=== PATIENT | female | born 1960 | race Caucasian/White ===

== ENCOUNTER 2016-08-19 10:59 | Inpatient (IN) ==
--- NOTE | 2016-08-19 11:46 | ED.PDOC ---
General ED Provider: Dr. JAYLON BAUTISTA JR Chief Complaint: Shoulder Pain/Injury Stated Complaint: patient fell onto walker and c/o pain to right clavicle.patient also has bruising to right side of chest and bruising under chin.all bruising is yellowed and purple.patient states she falls frequently[End ]08/12/16 99.3 81 16 91% 102/68 810 patient states not drinking alcohol as much. family states concerned that she is turning yellow Time Seen by Physician: 11:44 Mode of Arrival: Walk-In Information Source: Patient Exam Limitations: No limitations Primary Care Provider[facility] Nursing and Triage Documentation Reviewed and Agree: No Review of Systems - Review Of Systems Constitutional: Reports: Malaise, Weakness Eyes: Reports: No symptoms, Other (jaundice) Ears, Nose, Mouth, Throat: Reports: No symptoms Respiratory: Reports: No symptoms Cardiac: Reports: No symptoms GI: Reports: No symptoms, Other (jaundice noted by family to be worsening) : Reports: No symptoms Musculoskeletal: Reports: Joint pain (right shoulder) Skin: Reports: Bruising Neurological: Reports: Cognitive dysfunction Endocrine: Reports: No symptoms Hematologic/Lymphatic: Reports: No symptoms All Other Systems: Other Past Medical History - Past Medical History Previously Healthy: No Endocrine: Reports: DM 1 Cardiovascular: Reports: Hypertension, CHF Respiratory: Reports: COPD Hematological: Reports: None Gastrointestinal: Reports: None Genitourinary: Reports: None Neuro/Psych: Reports: Anxiety, Depression Musculoskeletal: Reports: None Cancer: Reports: None Last Menstrual Period: n/a - Surgical History General Surgical History: Reports: Unknown - Family History Family History: Reports: Unknown - Social History Smoking Status: Current every day smoker, Light tobacco smoker Hx Substance Use: No (patient states not drinking alcohol as much) Alcohol Screening: Heavy Physical Exam - Physical Exam Appearance: Well-appearing Pain Distress: Moderate Eyes: FIDELIA, EOMI, Conjunctiva clear (jaundices) ENT: Ears normal, Nose normal, Oropharynx normal Neck: Supple Respiratory: Airway patent, Breath sounds clear, Breath sounds equal, Respirations nonlabored Cardiovascular: RRR, Pulses normal, No rub, No murmur GI/: Soft, Nontender, No masses, Bowel sounds normal, No Organomegaly Musculoskeletal: Limited ROM (right arm tender clavicle) Skin: Warm, Dry (jaundice/yellow) Neurological: Sensation intact, Reflexes intact, Oriented (wrong day of week), Alert to verbal Psychiatric: Depressed Re-Evaluation - Re-Evaluation Time of Re-Evaluation: 16:55 (Disc with Dr Larry LEONARD called [facility] Enrique will call back) Status: Improved Physician Notification - Case Discussed Physician Notified: dr leos-disc with GI, disc with patietn - may of bleeding-willing to Time of Notification: 16:15 (willing to take lactulose, pt and mother state she will go home if no surg for shoulder; mother will get help [patient will take lactulose will follow up with dr Davis) Physician Notified: disc with [facility] colon only willing if gi- no gi// disc with sahil meléndez Time of Notification: 17:00 (dr robins states nothingthey can do for patient whom he knows, disc with kaylah-dixie- ciaran, gi will call us,,disc with dr Leos- will see patient in er) Critical Care Note - Critical Care Note Total Time (mins): 0 Course - Course Hematology/Chemistry: 08/19/16 12:24 08/19/16 12:24 Orders, Labs, Meds: Lab Review 08/19/16 08/19/16 12:20 12:24 WBC 4.88 RBC 3.37 L Hgb 12.6 Hct 36.1 L MCV 107.1 H MCH 37.4 H MCHC 34.9 RDW Coeff of Lul 13.0 Plt Count 58 L Immature Gran % (Auto) 0.6 Neut % (Auto) 66.8 Lymph % (Auto) 12.3 Henry % (Auto) 16.4 H Eos % (Auto) 3.3 Baso % (Auto) 0.6 Immature Gran # (Auto) 0.0 Neut # 3.3 Lymph # 0.6 Henry # 0.8 Eos # 0.2 Baso # 0.0 PT 18.9 H INR 1.83 APTT 30.8 Sodium 128 L Potassium 3.3 L Chloride 94 L Carbon Dioxide 24 Anion Gap 13.3 BUN 21 H Creatinine 0.97 Estimated GFR (MDRD) 60.00 BUN/Creatinine Ratio 21.64 Glucose 173 H Calcium 8.5 Total Bilirubin 14.04 H AST 68 H ALT 30 Alkaline Phosphatase 58 Ammonia 80 H Total Protein 6.2 L Albumin 2.6 L Globulin 3.6 Albumin/Globulin Ratio 0.72 Amylase 69 Lipase 85 H Plasma/Serum Alcohol < 10.0 Orders Category Date Time Status AMMONIA Stat LAB 08/19/16 12:24 Completed AMYLASE Stat LAB 08/19/16 12:24 Completed CBC W/ AUTO DIFF Stat LAB 08/19/16 12:24 Completed COMPREHENSIVE METABOLIC PANEL Stat LAB 08/19/16 12:24 Completed ETOH LEVEL [BLOOD ALCOHOL] Stat LAB 08/19/16 12:24 Completed LIPASE Stat LAB 08/19/16 12:24 Completed PT WITH INR Stat LAB 08/19/16 12:20 Completed PTT [PARTIAL THROMBOPLASTIN TIME] Stat LAB 08/19/16 12:20 Completed URINALYSIS C & S IF INDICATED Stat LAB 08/19/16 12:02 Uncollected Lactulose MEDS 08/19/16 13:17 Discontinued 40 gm PO ONCE STA Methylprednisolone [Medrol Dosepak] MEDS 08/19/16 19:00 Ordered 40 mg PO DAILY CHEST, 2 VIEWS PA & LAT Stat RADS 08/19/16 11:45 Completed CLAVICLE, RIGHT 2 VIEWS Stat RADS 08/19/16 13:[address] CHEST W/O CONTRAST Stat RADS 08/19/16 13:11 Completed Medications Generic Name Dose Route Start Last Admin Trade Name Freq PRN Reason Stop Dose Admin Methylprednisolone 40 mg 08/19/16 19:00 Medrol Dosepak PO 08/24/16 21:59 DAILY REJI Taper Discontinued Medications Generic Name Dose Route Start Last Admin Trade Name Freq PRN Reason Stop Dose Admin Lactulose 40 gm 08/19/16 13:17 08/19/16 13:33 Lactulose PO 08/19/16 13:18 40 gm ONCE STA Administration Vital Signs: Temp Pulse Resp BP Pulse Ox 08/19/16 10:59 99.3 F 81 16 102/68 91 L Departure - Departure Time of Disposition: 20:17 Disposition: ADMITTED INPATIENT Discharge Problem: Shoulder pain Alcoholic cirrhosis of liver Qualifiers: Ascites presence: without ascites Qualifier Code: (K70.30) Alcoholic cirrhosis of liver without ascites Condition: Poor Pt referred to PMD for follow-up: Yes Allergies/Adverse Reactions: Allergies No Known Allergies Allergy (Verified 08/19/16 11:07) Home Medications: Ambulatory Orders Furosemide [Lasix Tab] 20 mg PO QDAC 01/24/13 Lactulose [Kristalose] 20 gm PO TID #90 packet 08/19/16 Tramadol HCl [Ultram] 50 mg PO Q6H PRN #14 tablet 08/19/16 Additional Information: [id number]-dr joaquin calls back- will accept(no beds)(consider [facility] if not comfortable) daily pt and inr methylprednisolone 40mg daily for calculate alcoholic hepatitis score(low sodium is concerning) restrict free water to 1.5 liters obtain liver doppler ultrasound patient status is concerning.
[2016-08-19 12:27] LABS: BASOPHILS % (AUTO) 0.6 % (0.0-3.0); EOSINOPHILS # (AUTO) 0.2 K/ul (0.0-0.7); EOSINOPHILS % (AUTO) 3.3 % (0.0-7.0); HEMATOCRIT 36.1 % (37.0-47.0); HEMOGLOBIN 12.6 g/dl (12.0-16.0); IMMATURE GRANULOCYTE % (AUTO) 0.6 % (0.0-5.0); LYMPHOCYTES # (AUTO) 0.6 K/uL (0.60-3.4); LYMPHOCYTES % (AUTO) 12.3 (10.0-50.0); MEAN CORPUSCULAR HEMOGLOBIN 37.4 pg (27.0-31.0); MEAN CORPUSCULAR HGB CONC 34.9 (31.8-35.4); MEAN CORPUSCULAR VOLUME 107.1 fl (81.0-99.0); MONOCYTES # (AUTO) 0.8 K/uL (0.4-2.0); MONOCYTES % (AUTO) 16.4 (0-10); NEUTROPHILS # (AUTO) 3.3 K/ul (2.0-6.9); NEUTROPHILS % (AUTO) 66.8; PLATELET COUNT 58 10^3/uL (140-440); RED BLOOD COUNT 3.37 10^6/ul (4.20-5.40); WHITE BLOOD COUNT 4.88 K/ul (4.6-10.2)
[2016-08-19 12:47] LABS: ALBUMIN 2.6 g/dL (3.4-5.0); ALBUMIN/GLOBULIN RATIO 0.72; ANION GAP 13.3; BILIRUBIN,TOTAL 14.04 mg/dL (0.00-1.20); BUN/CREATININE RATIO 21.64; CALCIUM 8.5 mg/dL (8.2-10.2); CREATININE 0.97 mg/dL (0.60-1.30); POTASSIUM 3.3 mmol/L (3.5-5.10); TOTAL PROTEIN 6.2 g/dL (6.4-8.2)
--- NOTE | 2016-08-19 12:54 | DI ---
EXAM: Chest two views HISTORY: Clavicle pain, chest contusion COMPARISON: 09/16/2015 TECHNIQUE: Two views of the chest were performed FINDINGS: No focal airspace consolidation. There is lower airway thickening. There is no pleural effusion or pneumothorax. The heart is normal in size. The mediastinal contour is normal. There ar e chronic compression deformities L2 and L3, previously described CT 06/05/2014. Possible cortical i rregularity right clavicle distally, poorly evaluated. IMPRESSION: 1. Lower airway thickening may be infectious or inflammatory. No focal airspace consolidation. 2. Possible cortical irregularity right clavicle, poorly evaluated.. Fracture not excluded. Recom mend correlation with radiographs clavicle. Report faxed at time of dictation.
[2016-08-19] MEDS ORDERED: LACTULOSE PO STA (13:17)
--- NOTE | 2016-08-19 13:42 | DI ---
EXAM: Right clavicle two views HISTORY: Pain, changes on radiograph COMPARISON: Chest radiograph same day and 09/16/2015 TECHNIQUE: Two views right clavicle were performed FINDINGS: There is remodeling of the distal clavicle, chronic and may be due to old healed fracture . No acute fracture is visualized. There is mild chronic widening of the acromioclavicular joint w hich measures 12 mm. There is mild osteoarthritis of the glenohumeral joint with joint space narrow ing osteophyte formation. There is cystic change about the greater tuberosity and high riding humer al head, most suggestive of rotator cuff tear. IMPRESSION: 1. No acute fracture. 2. Remodeling distal clavicle, chronic and may be due to due to old healed fracture. 3. Chronic mild widening acromioclavicular joint, most consistent with chronic mild AC joint separa tion. 4. High-riding humeral head, most suggestive of rotator cuff tear. 5. Mild osteoarthritis glenohumeral joint.
[2016-08-19] MEDS ORDERED: MORPHINE 2 MG/ML SYRINGE IVP STA ×2 (15:20)
--- NOTE | 2016-08-19 15:29 | CT ---
EXAM: CT chest without contrast. HISTORY: Clavicle pain. Chest contusion. Abnormal chest radiograph. COMPARISON: Radiograph earlier the same day. TECHNIQUE: Multiple axial images of the chest were obtained without intravenous contrast. Images w ere reformatted in the sagittal and coronal planes. FINDINGS: Evaluation for lymphadenopathy is limited due to lack of intravenous contrast. Heart siz e is normal. There is no pericardial effusion. Atherosclerotic calcifications are present. There is consolidation within the posterior right lower lobe along with a trace amount of right pleu ral fluid. This is stable from abdominal CT dated 06/06/2014. Thin linear opacities and ground-gla ss opacities noted in the lingula and left lower lobe. Calcified granulomatous changes are present. No pneumothorax identified. Lucency seen through the proximal right clavicle which extends towards but not definitely into the s ternoclavicular joint. This is best seen on coronal images 24-26 without displacement. Limited franklin ges of the upper abdomen demonstrate cirrhotic liver morphology with upper abdominal varices. Sima lithiasis also present. IMPRESSION: 1. Nondisplaced proximal right clavicular fracture. 2. Right lower lobe consolidation and trace right pleural effusion, stable since prior abdominal CT is likely representing postinflammatory scarring. 3. Probable scarring within the lingula.
[2016-08-19] MEDS ORDERED: MEDROL DOSEPAK PO SCH (19:00)
[2016-08-19 19:36] LABS: PARTIAL THROMBOPLASTIN TIME 30.8 SEC (23.9-40.0); PROTHROMBIN TIME 18.9 SEC (9.3-11.0)
[2016-08-19] MEDS ORDERED: TYLENOL PO PRN (20:31)
[2016-08-19] MEDS ORDERED: GLUCOPHAGE ONE (20:48)
[2016-08-19] MEDS ORDERED: INDERAL ONE (20:50)
[2016-08-19] MEDS ORDERED: PROPRANOLOL HCL 10 MG PO SCH ×21 (21:00)
[2016-08-19] MEDS ORDERED: GLUCOPHAGE PO SCH (21:00)
[2016-08-19] MEDS: LANTUS SUBCUT SCH (21:08)
[2016-08-19] MEDS: ALDACTONE PO SCH (21:08)
[2016-08-19] MEDS: LACTULOSE PO SCH (21:08)
[2016-08-19] MEDS: SODIUM CHLORIDE 0.9%-KCL 20 MEQ 1,000 ML IV SCH (21:08)
[2016-08-19 21:15] LABS: BILIRUBIN,URINE 3+ (NEGATIVE); KETONES,URINE Trace (NEGATIVE); LEUKOCYTE ESTERASE ,URINE Negative (NEGATIVE); NITRITE,URINE Negative (NEGATIVE); PH,URINE 6.5 (5-9); PROTEIN,URINE Negative (NEGATIVE); URINE, BLOOD Negative (NEGATIVE)
[2016-08-19 21:17] LABS: ADD URINE MICROSCOPIC NO
[2016-08-19 21:36] VITALS: BMI 27.5
[2016-08-20] MEDS: LACTULOSE PO SCH ×4 (06:01→21:45)
[2016-08-20 06:12] LABS: BASOPHILS % (AUTO) 0.4 % (0.0-3.0); EOSINOPHILS # (AUTO) 0.2 K/ul (0.0-0.7); HEMATOCRIT 36.2 % (37.0-47.0); HEMOGLOBIN 12.5 g/dl (12.0-16.0); IMMATURE GRANULOCYTE % (AUTO) 1.2 % (0.0-5.0); LYMPHOCYTES # (AUTO) 0.8 K/uL (0.60-3.4); LYMPHOCYTES % (AUTO) 15.5 (10.0-50.0); MEAN CORPUSCULAR HEMOGLOBIN 37.2 pg (27.0-31.0); MEAN CORPUSCULAR HGB CONC 34.5 (31.8-35.4); MEAN CORPUSCULAR VOLUME 107.7 fl (81.0-99.0); MONOCYTES # (AUTO) 1.1 K/uL (0.4-2.0); MONOCYTES % (AUTO) 21.5 (0-10); NEUTROPHILS # (AUTO) 2.9 K/ul (2.0-6.9); NEUTROPHILS % (AUTO) 57.4; PLATELET COUNT 50 10^3/uL (140-440); RED BLOOD COUNT 3.36 10^6/ul (4.20-5.40); WHITE BLOOD COUNT 4.97 K/ul (4.6-10.2)
[2016-08-20 06:50] LABS: ALBUMIN 2.3 g/dL (3.4-5.0); ALBUMIN/GLOBULIN RATIO 0.68; ANION GAP 10.2; BILIRUBIN,TOTAL 15.02 mg/dL (0.00-1.20); BUN/CREATININE RATIO 20.68; CALCIUM 8.2 mg/dL (8.2-10.2); CREATININE 0.87 mg/dL (0.60-1.30); POTASSIUM 3.2 mmol/L (3.5-5.10); TOTAL PROTEIN 5.7 g/dL (6.4-8.2)
[2016-08-20] MEDS: SODIUM CHLORIDE 0.9%-KCL 20 MEQ 1,000 ML IV SCH ×2 (09:28→22:42)
[2016-08-20] MEDS ORDERED: MEPHYTON PO STA (09:52)
--- NOTE | 2016-08-20 11:06 | US ---
EXAM: Ultrasound abdomen complete. HISTORY: Hepatic failure COMPARISON: 06/10/2016 TECHNIQUE: Abdominal, real time with image documentation: Complete. FINDINGS: Liver: Nodular surface contour with coarsened echotexture pattern. No intrahepatic biliary di latation. Portal venous flow is normal direction. Gallbladder: Mobile echogenic shadowing structures. The wall thickening or pericholecystic fl uid. Common bile duct: 0.5 cm. Pancreas: Visualized portions are unremarkable. Spleen: Normal, length 12.2 cm. Right kidney: 11.6 cm length. No hydronephrosis. Left kidney: 10.8 cm in length. No hydronephrosis. Aorta: Visualized portions are normal in caliber. IVC: Visualized portions are normal in caliber. IMPRESSION: 1. Cirrhosis. 2. Cholelithiasis.
[2016-08-20] MEDS: ZOLOFT PO SCH (11:27)
[2016-08-20] MEDS: LANTUS SUBCUT SCH ×2 (11:27→21:46)
[2016-08-20] MEDS: NEURONTIN PO SCH (11:28)
[2016-08-20] MEDS: ALDACTONE PO SCH ×2 (11:28→21:44)
[2016-08-20] MEDS: THIAMINE IM SCH (11:28)
[2016-08-20] MEDS: VITAMIN B-12 IM SCH (11:28)
[2016-08-20] MEDS: INDERAL PO SCH ×2 (11:29→21:44)
[2016-08-20] MEDS: GLUCOPHAGE PO SCH ×2 (11:29→17:13)
[2016-08-21 05:52] LABS: BASOPHILS % (AUTO) 0.5 % (0.0-3.0); EOSINOPHILS # (AUTO) 0.3 K/ul (0.0-0.7); HEMATOCRIT 37.3 % (37.0-47.0); IMMATURE GRANULOCYTE % (AUTO) 1.1 % (0.0-5.0); LYMPHOCYTES # (AUTO) 1.1 K/uL (0.60-3.4); LYMPHOCYTES % (AUTO) 17.1 (10.0-50.0); MEAN CORPUSCULAR HEMOGLOBIN 38.1 pg (27.0-31.0); MEAN CORPUSCULAR HGB CONC 34.9 (31.8-35.4); MEAN CORPUSCULAR VOLUME 109.4 fl (81.0-99.0); MONOCYTES # (AUTO) 1.2 K/uL (0.4-2.0); MONOCYTES % (AUTO) 19.5 (0-10); NEUTROPHILS # (AUTO) 3.5 K/ul (2.0-6.9); NEUTROPHILS % (AUTO) 56.8; PLATELET COUNT 62 10^3/uL (140-440); RED BLOOD COUNT 3.41 10^6/ul (4.20-5.40); WHITE BLOOD COUNT 6.15 K/ul (4.6-10.2)
[2016-08-21 05:56] LABS: PROTHROMBIN TIME 21.6 SEC (9.3-11.0)
[2016-08-21 06:11] LABS: ALBUMIN 2.3 g/dL (3.4-5.0); ALBUMIN/GLOBULIN RATIO 0.7; ANION GAP 11.8; BUN/CREATININE RATIO 17.07; CALCIUM 8.5 mg/dL (8.2-10.2); CREATININE 0.82 mg/dL (0.60-1.30); POTASSIUM 3.8 mmol/L (3.5-5.10); TOTAL PROTEIN 5.6 g/dL (6.4-8.2)
[2016-08-21 06:16] LABS: BILIRUBIN,TOTAL 18.57 mg/dL (0.00-1.20)
[2016-08-21] MEDS ORDERED: NADOLOL 20 MG PO SCH (09:00)
[2016-08-21] MEDS: MEPHYTON PO SCH (09:55)
[2016-08-21] MEDS: NEURONTIN PO SCH (09:55)
[2016-08-21] MEDS: GLUCOPHAGE PO SCH ×2 (09:55→18:56)
[2016-08-21] MEDS: ZOLOFT PO SCH (09:55)
[2016-08-21] MEDS: ALDACTONE PO SCH ×2 (09:55→21:29)
[2016-08-21] MEDS: CORGARD PO SCH (09:56)
[2016-08-21] MEDS: LACTULOSE PO SCH ×2 (10:11→21:30)
[2016-08-21] MEDS: THIAMINE IM SCH (10:12)
[2016-08-21] MEDS: VITAMIN B-12 IM SCH (10:15)
[2016-08-21] MEDS: LANTUS SUBCUT SCH ×2 (10:15→21:29)
[2016-08-21] MEDS ORDERED: PEDIAPRED 5 MG/5 ML SOL PO STA (11:03)
[2016-08-21] MEDS ORDERED: SODIUM CHLORIDE IV STA (11:11)
[2016-08-21] MEDS ORDERED: VITAMIN K IV STA (11:11)
[2016-08-21] MEDS ORDERED: VITAMIN B-12 IM SCH (12:00)
[2016-08-21] MEDS: SODIUM CHLORIDE 0.9%-KCL 20 MEQ 1,000 ML IV SCH (12:02)
[2016-08-21] MEDS: ZINC-220 PO SCH ×2 (12:03→21:30)
[2016-08-21] MEDS: PYRIDOXINE HCL PO SCH (12:03)
[2016-08-21] MEDS: FOLIC ACID PO SCH (12:04)
[2016-08-22] MEDS: SODIUM CHLORIDE 0.9%-KCL 20 MEQ 1,000 ML IV SCH ×2 (02:05→15:48)
[2016-08-22 06:41] LABS: BASOPHILS % (AUTO) 0.3 % (0.0-3.0); HEMOGLOBIN 12.7 g/dl (12.0-16.0); IMMATURE GRANULOCYTE % (AUTO) 0.6 % (0.0-5.0); LYMPHOCYTES # (AUTO) 0.9 K/uL (0.60-3.4); LYMPHOCYTES % (AUTO) 14.4 (10.0-50.0); MEAN CORPUSCULAR HEMOGLOBIN 36.5 pg (27.0-31.0); MEAN CORPUSCULAR HGB CONC 33.4 (31.8-35.4); MEAN CORPUSCULAR VOLUME 109.2 fl (81.0-99.0); MONOCYTES # (AUTO) 0.6 K/uL (0.4-2.0); MONOCYTES % (AUTO) 8.9 (0-10); NEUTROPHILS # (AUTO) 4.9 K/ul (2.0-6.9); NEUTROPHILS % (AUTO) 75.8; PLATELET COUNT 89 10^3/uL (140-440); RED BLOOD COUNT 3.48 10^6/ul (4.20-5.40); WHITE BLOOD COUNT 6.52 K/ul (4.6-10.2)
[2016-08-22 06:47] LABS: PROTHROMBIN TIME 21.5 SEC (9.3-11.0)
[2016-08-22 07:14] LABS: ALBUMIN 2.1 g/dL (3.4-5.0); ALBUMIN/GLOBULIN RATIO 0.64; ANION GAP 9.3; BUN/CREATININE RATIO 16.25; CALCIUM 8.3 mg/dL (8.2-10.2); CREATININE 0.8 mg/dL (0.60-1.30); POTASSIUM 4.3 mmol/L (3.5-5.10); TOTAL PROTEIN 5.4 g/dL (6.4-8.2)
[2016-08-22 07:25] LABS: BILIRUBIN,TOTAL 19.99 mg/dL (0.00-1.20)
[2016-08-22] MEDS: MEPHYTON PO SCH (08:45)
[2016-08-22] MEDS: FOLIC ACID PO SCH (08:45)
[2016-08-22] MEDS: PYRIDOXINE HCL PO SCH (08:45)
[2016-08-22] MEDS: GLUCOPHAGE PO SCH ×2 (08:46→18:46)
[2016-08-22] MEDS: CORGARD PO SCH (08:46)
[2016-08-22] MEDS: NEURONTIN PO SCH (08:46)
[2016-08-22] MEDS: ZOLOFT PO SCH (08:46)
[2016-08-22] MEDS: ALDACTONE PO SCH ×2 (08:46→21:13)
[2016-08-22] MEDS: ZINC-220 PO SCH ×2 (08:46→21:13)
[2016-08-22] MEDS: THIAMINE IM SCH (08:47)
[2016-08-22] MEDS: VITAMIN B-12 IM SCH (08:47)
[2016-08-22] MEDS: LANTUS SUBCUT SCH ×2 (08:49→21:22)
[2016-08-22] MEDS: LACTULOSE PO SCH ×2 (08:53→21:17)
[2016-08-22] MEDS ORDERED: FOLBIC TABLET PO SCH (09:00)
[2016-08-23] MEDS: SODIUM CHLORIDE 0.9%-KCL 20 MEQ 1,000 ML IV SCH ×2 (04:39→18:17)
[2016-08-23 04:50] LABS: HEMATOCRIT 39.5 % (37.0-47.0); HEMOGLOBIN 13.1 g/dl (12.0-16.0); MEAN CORPUSCULAR HEMOGLOBIN 36.7 pg (27.0-31.0); MEAN CORPUSCULAR HGB CONC 33.2 (31.8-35.4); MEAN CORPUSCULAR VOLUME 110.6 fl (81.0-99.0); PLATELET COUNT 143 10^3/uL (140-440); RED BLOOD COUNT 3.57 10^6/ul (4.20-5.40)
[2016-08-23 05:07] LABS: ANISOCYTOSIS NOT PRESENT (NOT PRESENT)
[2016-08-23 05:15] LABS: ALBUMIN 2.1 g/dL (3.4-5.0); ALBUMIN/GLOBULIN RATIO 0.6; ANION GAP 10.5; BUN/CREATININE RATIO 12.94; CALCIUM 8.9 mg/dL (8.2-10.2); CREATININE 0.85 mg/dL (0.60-1.30); POTASSIUM 4.5 mmol/L (3.5-5.10); TOTAL PROTEIN 5.6 g/dL (6.4-8.2)
[2016-08-23 05:22] LABS: BILIRUBIN,TOTAL 20.67 mg/dL (0.00-1.20)
--- NOTE | 2016-08-23 07:16 | HP ---
CHIEF COMPLAINT: 1. Pain, right medial clavicle secondary to fall. 2. History of liver cirrhosis. 3. Change in cognition, slow to react with poor recollection of events. HISTORY OF PRESENT ILLNESS: Because of the above problems; however, in discussion with this patient this patient also has significant liver problems and serum ammonia was high at 80 and total bilirubin was 14.04, AST 68, ALT normal at 30. GFR was 60. WBC 488, hemoglobin 12.6. Initial idea of admitting because of the inability to get up; however, I did discuss the case with the emergency room physician about the liver problems, liver cirrhosis, probably end-stage and some acute exacerbation because of chronic alcohol use, which is persistent although she had not had any alcohol in the last 2 to 3 days confirmed by the patient as well as the mother. Emergency room physician was unable to transfer to another facility and so this patient was admitted to this facility. PAST PERSONAL HISTORY: This patient had been admitted previously to this hospital because of some cognitive problem as well as pneumonia in August 2015. The patient is known to have cirrhosis secondary to alcohol and the patient continued drinking. She had a fracture of the right leg and ankle treated with open reduction and internal fixation. FAMILY HISTORY: Mother had hypertension and myocardial infarction. Father had lung carcinoma. SOCIAL HISTORY: The patient is single and resides with the family. She is disabled. She is an every day smoker, less than one pack. The patient claims to drink less amount of alcohol now. Again, she and her mother claimed that she had not had alcohol for 2 to 3 days. MEDICATIONS: (HOME) 1. Lasix 20 mg daily 2. Sertraline 50 mg daily 3. Lactulose 20 gm daily 4. Propranolol 10 mg twice a day 5. Gabapentin 300 mg capsule daily 6. Metformin 500 mg twice a day 7. Lantus 28 units SQ twice a day 8. Aldactone 25 mg tablet b.i.d. ALLERGIES: NKDA REVIEW OF SYSTEMS: CONSTITUTIONAL: The patient is alert, slow to respond but does answer correctly. She is weak. No fever, no chills. PAINTING MACHINE OPERATOR: The patient's response time seemed to be slower. She does not remember things very well. She had not had any seizures. No headaches. VISUAL: No diplopia. No transient loss of vision. AUDITORY: The patient is able to hear adequately. No tinnitus. No drainage. No pain. RESPIRATORY: Denies any significant cough. No hemoptysis. CARDIOVASCULAR: Denies any chest pain. GASTROINTESTINAL: Appetite seems to be acceptable. Denies any abdominal pain. GENITOURINARY: Denies any pain on urination. MUSCULOSKELETAL: The patient has fracture of the right medial clavicle and also a previous fracture of the right leg and ankle treated with ORIF. ENDOCRINE: Negative. HEMATOLOGIC: The patient has thrombocytopenia and some area of ecchymosis but no spontaneous history of bleeding. PSYCHIATRIC: The patient has alcoholic dependency. PHYSICAL EXAMINATION: GENERAL: This is a 56-year-old female that is admitted to the hospital because of elevated total bilirubin and serum ammonia with recent fracture of the right clavicle. 2:34 responds slow. HEAD: Unremarkable. Face is essentially symmetric and equal. Icteric skin. EYES: Pupils equal and reactive to light about 3 mm in size. Sclerae and conjunctivae is icteric. MOUTH: Unremarkable THROAT: No inflammation, tumors or exudate. NECK: No masses. No bruit. There is an area of ecchymosis on the chin. CHEST: Symmetrical and equal with some ecchymosis in the lateral chest, right side. Tenderness in the clavicular surface to palpation. No crepitus in the chest. LUNGS: Breath sounds are heard on both sides, somewhat diminished and coarse but no obvious rales. HEART: Audible and regular with good tones. ABDOMEN: Slightly protuberant, soft with no palpable masses. Bowel sounds are active. EXTERNAL GENITALIA: Not examined. PELVIC: Not performed. RECTAL: Not performed. LOWER EXTREMITIES: Lower leg right is bigger than the left side secondary to previous fracture. Pedal pulses on the right are absent. The left has palpable anterior tibial pulse. UPPER EXTREMITIES: Essentially symmetrical and equal. ASSESSMENT: 1. LIVER CIRRHOSIS SECONDARY TO ETHANOL PROBABLY WITH SOME HEPATITIS. 2. MARKEDLY ELEVATED TOTAL BILIRUBIN. 3. SOME COGNITIVE IMPAIRMENT. 4. HISTORY OF FRACTURE RIGHT LEG AND ANKLE. 5. CHRONIC TOBACCO USE AND ABUSE PERSISTENT. 6. DIABETES MELLITUS. 7. ELEVATED BMI. 8. HISTORY OF HIP FRACTURE, CORRECTED. PROGNOSIS: Poor. I had a discussion with the mother and the patient while she was in the emergency room. I did inform them also of our inability to transfer her to another facility. BRANT
--- NOTE | 2016-08-23 08:41 | PN ---
DATE OF VISIT: 08/20/16 SUBJECTIVE: The patient vital signs during the day at 6:00 in the afternoon showed a temperature of 98, pulse 78, blood pressure 104/68 and respiratory rate 18. She was responsive and alert. She was able to get up to the bathroom. It remained jaundice. WBC had remained the same as well and the hgb and hct. INR is now 1.94 and was 1.83 yesterday. Sodium is slightly better and the potassium is able the same and the chloride is better now normal. GFR is 68 from 60, blood sugars 163 and serum calcium 8.2, total bilirubin 15.02 from 14.04. AST down to 56 from 68, ALT remained normal. Serum Ammonia is down 32 from 80. Total protein and albumin below normal. Lipase 85 and amylase normal. LUNG: Still no rales HEART: Audible with good tones ABDOMEN: No remarkable tenderness CONDITION: Seems to be stable. MTDD
[2016-08-23] MEDS: FOLIC ACID PO SCH (08:52)
[2016-08-23] MEDS: ZINC-220 PO SCH ×2 (08:52→21:03)
[2016-08-23] MEDS: ALDACTONE PO SCH ×2 (08:53→21:03)
[2016-08-23] MEDS: ZOLOFT PO SCH (08:53)
[2016-08-23] MEDS: PYRIDOXINE HCL PO SCH (08:53)
[2016-08-23] MEDS: NEURONTIN PO SCH (08:54)
[2016-08-23] MEDS: LACTULOSE PO SCH ×2 (08:54→21:03)
[2016-08-23] MEDS: THIAMINE IM SCH (09:04)
--- NOTE | 2016-08-23 09:05 | PN ---
DATE OF VISIT: 08/21/16 SUBJECTIVE: The patient today is alert and responsive but does complain of not feeling well. She felt better yesterday. She did eat 75% of her meals yesterday and 100 % before that. I do not have the record for today. She is not dyspneic or tachypneic. ABDOMEN: Nontender. His total bilirubin has risen to 18.57. I have sought transfer for this patient to [place] and I talked to Dr. Stephen Khan and told me that she would accept the patient. She however told me that it might be better to send her to [facility] in [place]. However she said that she would take the patient but I have to call [facility] and see if they have a bed. I proceeded to call [facility] and she told me that there is no bed in the ICU or any intensive care beds as a result this is patient is not accepted over because of the no bed availability. I did talk to [facility] transfer doctor hospitalist, Dr. Ricahrd and said he had talked to the GI doctors and judged that he could not do anything for her other than what we are doing now. This patient will be transferred to [place] if and when they will accept the patient into their services. I had talked to the mother about the possibility of such. I told her that there was no bed and [place] and she told me that when do they expect to be open and I told her that I don't know. She wanted her transferred to a newer facility and I told her that I would try however I am not able to get these facilities to accept and if unable to get one then we will have to transfer her to [place] and they don't want it done. When I talked to Dr. Stephen Khan and advised this patient and advised the following medications to be given: Prednisolone 40mg daily, Zinc Sulfate 220mg twice a day, Folic acid. This patient is already receiving Thiamine injection and she is also receiving B12. We will try to touch base with [place] and see what happens. BRANT
[2016-08-23] MEDS: LANTUS SUBCUT SCH ×2 (09:08→21:04)
[2016-08-23] MEDS: VITAMIN B-12 IM SCH (09:08)
[2016-08-23] MEDS: CORGARD PO SCH (09:10)
[2016-08-23] MEDS: MEPHYTON PO SCH (09:14)
--- NOTE | 2016-08-23 09:41 | PN ---
DATE OF VISIT: 08/21/16 SUBJECTIVE: I had asked the patient whether she was willing to go to [place] if I would get an acceptance for her and she shook her head in the present of Ledy Gallegos. I then asked Mrs. Gallegos to call the mother to come so I could discuss this with them. Mother did come with the patient's boyfriend. I had discussed with them again what I have done up to this time. This was carried in the presence of Ledy Gallegos. I told them that I had called [facility] and talked to Dr. Stephen Khan with regards to her and Dr. Khan was willing to treat her at the [facility] if there was a bed. She also mentioned that it might be best for her to go to [place] directly although she was willing to take care of her in the mean time. She directed me to call the auto mechanic supervisor at the [facility] for the availability of the bed. After waiting for the call back the [facility] auto mechanic supervisor did call me and told me that there is no bed at the intensive care unit. He also had mentioned [facility] but that also occupied since there was no mention of any bed available. As a result she could not be transferred to [facility]. I proceeded to call [facility] and talked to Dr. Richard and he told me that he has discussed the case with the consulting GI who is front tender with him and was informed by the GI doctor that there is nothing that can offer to her at the [facility]. I did not call [facility] since [facility] had already rejected initially on the the reason was there was no GI doctor front tender. After answering questions from the mother they decided to wait till tomorrow to make a decision whether they would go to [place] or not. I told them that I don't know how long she will be staying there and I am not certain on what they would do and what will be their recommendations. Again they had decided to wait until tomorrow. The mother mentioned about [facility] and so I proceeded to call [facility] and the answer was their facility was not the facility for her and with these findings they send their patient to [place]. This also was communicated to the patient, the mother and boyfriend. They haven't made any decisions and I am waiting for them to decided whether she would go to [place]. The mother did ask me whether the patient can go home and I said yes if she decides to go home but that would not be in my advise, She did ask me how long she would live if she would go home and I told her I do not know although if she goes how and begins drinking the life span will certainly be shorter to my judgement. She had noted that her daughter's skin is much more yellow today than yesterday. I did agree with her. So at this juncture I am still waiting for their decision on how to pursue further treatment. She wanted to know whether [facility] would have a bed tomorrow and I told her that I do not know because people in intensive care unit do not leave the hospital very quickly or soon. MTDConstance
[2016-08-23] MEDS ORDERED: VITAMIN K IV SCH (19:30)
[2016-08-23] MEDS ORDERED: SODIUM CHLORIDE IV SCH (19:30)
[2016-08-23] MEDS ORDERED: VITAMIN K ONE (20:58)
[2016-08-24 04:49] LABS: BASOPHILS # (AUTO) 0.1 K/uL (0-0.2); BASOPHILS % (AUTO) 0.6 % (0.0-3.0); EOSINOPHILS # (AUTO) 0.3 K/ul (0.0-0.7); EOSINOPHILS % (AUTO) 2.4 % (0.0-7.0); HEMATOCRIT 37.7 % (37.0-47.0); IMMATURE GRANULOCYTE % (AUTO) 1.5 % (0.0-5.0); LYMPHOCYTES # (AUTO) 1.3 K/uL (0.60-3.4); LYMPHOCYTES % (AUTO) 11.5 (10.0-50.0); MEAN CORPUSCULAR HEMOGLOBIN 37.4 pg (27.0-31.0); MEAN CORPUSCULAR HGB CONC 34.5 (31.8-35.4); MEAN CORPUSCULAR VOLUME 108.3 fl (81.0-99.0); MONOCYTES # (AUTO) 0.6 K/uL (0.4-2.0); MONOCYTES % (AUTO) 5.4 (0-10); NEUTROPHILS # (AUTO) 9.2 K/ul (2.0-6.9); NEUTROPHILS % (AUTO) 78.6; PLATELET COUNT 139 10^3/uL (140-440); RED BLOOD COUNT 3.48 10^6/ul (4.20-5.40); WHITE BLOOD COUNT 11.68 K/ul (4.6-10.2)
[2016-08-24 05:01] LABS: PROTHROMBIN TIME 22.3 SEC (9.3-11.0)
[2016-08-24 05:12] LABS: ALBUMIN/GLOBULIN RATIO 0.61; ANION GAP 12.2; BUN/CREATININE RATIO 13.15; CALCIUM 8.4 mg/dL (8.2-10.2); CREATININE 0.76 mg/dL (0.60-1.30); POTASSIUM 4.2 mmol/L (3.5-5.10); TOTAL PROTEIN 5.3 g/dL (6.4-8.2)
[2016-08-24 05:15] LABS: BILIRUBIN,TOTAL 21.57 mg/dL (0.00-1.20)
[2016-08-24] MEDS: SODIUM CHLORIDE 0.9%-KCL 20 MEQ 1,000 ML IV SCH ×3 (07:56→21:58)
[2016-08-24] MEDS: ALDACTONE PO SCH ×2 (08:43→21:13)
[2016-08-24] MEDS: CORGARD PO SCH (08:43)
[2016-08-24] MEDS: LACTULOSE PO SCH ×2 (08:43→21:13)
[2016-08-24] MEDS: FOLIC ACID PO SCH (08:44)
[2016-08-24] MEDS: VITAMIN K IV SCH (08:44)
[2016-08-24] MEDS: ZINC-220 PO SCH ×2 (08:44→21:14)
[2016-08-24] MEDS: PYRIDOXINE HCL PO SCH (08:44)
[2016-08-24] MEDS: SODIUM CHLORIDE IV SCH (08:44)
[2016-08-24] MEDS: ZOLOFT PO SCH (08:44)
[2016-08-24] MEDS: NEURONTIN PO SCH (08:44)
[2016-08-24] MEDS: THIAMINE IM SCH (08:45)
[2016-08-24] MEDS: VITAMIN B-12 IM SCH (08:46)
[2016-08-24] MEDS: LANTUS SUBCUT SCH ×2 (08:56→21:14)
--- NOTE | 2016-08-24 11:39 | PN ---
DATE OF VISIT: 08/22/16 The patient, about 6 p.m., is alert and oriented. She, however, has poor recollection of events. VITAL SIGNS: Her temperature is 97.4, pulse rate 65, blood pressure 110/68, respiratory rate 20, oxygen saturation 98 at room air. The patient is jaundice, a bit more for some reason. She claimed to feel some better. I had asked her, as well as her mother, whether they had decided to go to [place]. The were advised to let us know if they had decided during the day and none of those came forth to the nurses. I asked them again in the evening and the patient, the mother, as well as a relative was present and during the course of the conversation, the male relative told me that Ms. Pino had been to [place] several times to Dr. Fontana's office who comes to [place] twice a week, both [place] and [place]. Today is a holiday, so it is very difficult for me to access their doctors phone number. I told them that I will try to get in touch with the doctor if possible tomorrow, 2016. The uncle was asking about the condition of the liver and I told them that the liver had cirrhosis and beyond that the ultrasound does not indicate anything else. The liver, however, has failed and is in liver failure. She needed to have a orthopedic shoe fitter and there is none around [place], except maybe Dr. Fontana who comes from [place] and [place] or [place] or nearby cities. She either needs to go to [facility] or to [place] at maybe [facility]. The mother is hoping that there will be a place nearer and I repeated that there is no one here to take care of her or make a diagnosis and prognosis and recommendations for treatment. LUNGS: Still clear to auscultation in both sides. HEART: Normal sinus rhythm. ABDOMEN: Protuberant, but no ascites. Bowel sounds are active. LOWER EXTREMITIES: No significant edema. CONDITION: Seems to be stable, but this patient needs to see or be transferred to a Tertiary hospital. The patient, as well as the family, has not decided and keep repeating to them that I am not capable of taking care of her and she needed to be transferred. The mother had asked me how long she would survive if she goes home and I told her that I do not know. I mentioned that if she would resume drinking that would certainly shorten the life span of the patient. I again repeated to them that I could not initiate a transfer if they have not decided to be transferred to that facility. Her INR today is 2.09, stable. Her total bilirubin is up to 19.99 from 18.57. AST is about the same, 64 yesterday and today. ALT had remained normal. The alkaline phosphatase is still normal. Total protein is low and Albumin is low at 2.1. Globulin at 3.3. MTDD
--- NOTE | 2016-08-24 12:00 | PN ---
DATE OF VISIT: 08/23/16 The patient was seen about 1 p.m. this afternoon and the patient was alert and responsive. Not dyspneic, nor tachypneic, but jaundiced. I asked her whether she had decided to be transferred and she hasn't at this time. The mother is not present. I did try to get in touch with Dr. Fontana and I called the number that was given and it is an office number of the GI doctors in [place]. The office is closed. I tried also to get records from Dr. Ramey's office who was her previous family physician and their office is also closed. Her total bilirubin today is 20.67, slightly higher than yesterday and the AST is up to 95 from 64. The alkaline phosphatase is now 114 from 94 indicating some more obstruction. WBC 9,000, hemoglobin 13.3, hematocrit 39.5, about the same as yesterday. The MCV is high and had been high since admission at 110.6 and MCH 36.7. Platelet count is now normal at 143,000. She was admitted at 58, 000 and went down to 50,000 on the second hospital day. Neutrophils are slightly elevated at 83, but there are no stabs. LUNGS: Clear. HEART: Audible and regular with good tones. CONDITION: Seemingly unchanged. Her mother and her uncle is not here at the hospital and I will try to talk to them again when I come back to the hospital. VITAL SIGNS: At 10 o'clock, temperature of 98, pulse 76, blood pressure 124/80 , respiratory rate 20, no oximetry done. MTDD
[2016-08-25 05:27] LABS: HEMATOCRIT 36.8 % (37.0-47.0); HEMOGLOBIN 12.6 g/dl (12.0-16.0); MEAN CORPUSCULAR HEMOGLOBIN 37.5 pg (27.0-31.0); MEAN CORPUSCULAR HGB CONC 34.2 (31.8-35.4); MEAN CORPUSCULAR VOLUME 109.5 fl (81.0-99.0); PLATELET COUNT 136 10^3/uL (140-440); RED BLOOD COUNT 3.36 10^6/ul (4.20-5.40); WHITE BLOOD COUNT 11.96 K/ul (4.6-10.2)
[2016-08-25 05:50] LABS: ALBUMIN 1.9 g/dL (3.4-5.0); ALBUMIN/GLOBULIN RATIO 0.59; ANION GAP 10.5; BUN/CREATININE RATIO 10.84; CALCIUM 8.2 mg/dL (8.2-10.2); CREATININE 0.83 mg/dL (0.60-1.30); POTASSIUM 4.5 mmol/L (3.5-5.10); TOTAL PROTEIN 5.1 g/dL (6.4-8.2)
[2016-08-25 05:59] LABS: PROTHROMBIN TIME 22.1 SEC (9.3-11.0)
[2016-08-25 06:01] LABS: ANISOCYTOSIS NOT PRESENT (NOT PRESENT)
[2016-08-25 06:31] LABS: BILIRUBIN,TOTAL 22.49 mg/dL (0.00-1.20)
--- NOTE | 2016-08-25 09:49 | PN ---
DATE OF SERVICE: 08/24/16 This is conversations with Elvira Pino and her uncle in [facility] this morning about 10:00 a.m. I did inform them about my conversation with Dr. Fontana. At the end of our conversation Dr. Fontana mentioned to call [facility] hospitalist and see if they would accept admission and he will be willing to see her on consult. She did remember her the times that she had seen her at the clinic before. I proceeded to talk the hospitalist at [facility] and the doctor at the end of our conversation told me that there is nothing else they can do over and above what we are doing and I recited to him the medications that this patient is receiving and also the labs, especially the total bilirubin. The total bilirubin is getting higher from 14 and now 21 plus since admission. The patient remained alert and responsive. She is markedly jaundiced. The doctor advised me to refer her to [place] or any tertiary care hospital that has capabilities other than what is afforded locally. The patient asked me whether she is dying and I did not answer her directly with that and the uncle was asking me on how she would be and I told him that I do not know that either. Her condition may deteriorate rapidly or it may not. The uncle was wondering how they would be able to that going to [place]. The patient's mother is experiencing some senile dementia and could not remember things that are of recent events. Up to this point, there has been no decision from their part as to what they would do. I had explained to them that I had talked to [facility], [facility] and [facility] had been contacted prior to her admission who also rejected admission. I told them that if they have any decisions made to let the nurse know so the nurse would be able to communicate with me. BRANT
--- NOTE | 2016-08-25 09:56 | PN ---
DATE OF VISIT: 08/24/16 The patient's mother came into the hospital about 1 p.m. this afternoon and I had a conversation with her without the patient. She was asking me what would happen to her and I simply told her that I don't know exactly what would happen , but her condition is grave and that we are not able to get any acceptance from the nearby hospitals to [place]. The advise was to go to [place] or refer her to [place]. I did tell her that I empathized with her with the problems that she is facing. I told her that I had not talked to [facility] since they have not decided to entertain the idea of going to [place]. I repeated to her that I don't know if [facility] would accept her as a patient, but I would not talk to them unless they are willing to go there. So I repeated to her that I would wait for their decision. BRANT
[2016-08-25] MEDS: CORGARD PO SCH (09:59)
[2016-08-25] MEDS: ALDACTONE PO SCH ×2 (09:59→21:38)
[2016-08-25] MEDS: FOLIC ACID PO SCH (09:59)
[2016-08-25] MEDS: NEURONTIN PO SCH (10:00)
[2016-08-25] MEDS: LANTUS SUBCUT SCH ×2 (10:00→21:39)
[2016-08-25] MEDS: LACTULOSE PO SCH ×2 (10:00→21:41)
[2016-08-25] MEDS: VITAMIN B-12 IM SCH (10:01)
[2016-08-25] MEDS: THIAMINE IM SCH (10:01)
[2016-08-25] MEDS: SODIUM CHLORIDE IV SCH (10:01)
[2016-08-25] MEDS: VITAMIN K IV SCH (10:01)
[2016-08-25] MEDS: PYRIDOXINE HCL PO SCH (10:01)
[2016-08-25] MEDS: ZOLOFT PO SCH (10:02)
[2016-08-25] MEDS: ZINC-220 PO SCH ×2 (10:02→21:37)
--- NOTE | 2016-08-25 10:05 | PN ---
DATE OF VISIT: 08/24/16 Conversation with Elvira Pino's mother at about 2:00 p.m. I did call [facility] and Aster answered and she told me that Ms. Pino's mother wants to talk to me. She did get her and I did talk to her on the phone. She told me what would happen if she would bring her home and I told her that I don't know. We will give her all of the medications that she is getting at the hospital. The medications that are given IV will be given orally. She asked me about seeing Dr. Fontana at his office and I told her that, "Yes, they can probably call Dr. Fontana's office or I could call or they can just go to the emergency room at [facility] and present herself for further care at the facility." That might get them to see Dr. Fontana or they can go to the office of Dr. Fontana. I would not advise them to present to the office without an appointment. If they were to go to see Dr. Fontana at the office tomorrow that they should let me know so I could make the arrangements if possible to see him. I did tell her that I would wait for the decision. BRANT
[2016-08-25] MEDS: DEXTROSE 5% IV SCH (18:00)
[2016-08-25] MEDS: SOD CHLORIDE 0.225% IV SCH (18:00)
[2016-08-26 06:18] LABS: BASOPHILS # (AUTO) 0.1 K/uL (0-0.2); BASOPHILS % (AUTO) 0.7 % (0.0-3.0); EOSINOPHILS # (AUTO) 0.2 K/ul (0.0-0.7); EOSINOPHILS % (AUTO) 1.8 % (0.0-7.0); HEMATOCRIT 37.7 % (37.0-47.0); IMMATURE GRANULOCYTE % (AUTO) 2.2 % (0.0-5.0); LYMPHOCYTES # (AUTO) 1.2 K/uL (0.60-3.4); LYMPHOCYTES % (AUTO) 9.2 (10.0-50.0); MEAN CORPUSCULAR HEMOGLOBIN 36.9 pg (27.0-31.0); MEAN CORPUSCULAR HGB CONC 34.5 (31.8-35.4); MEAN CORPUSCULAR VOLUME 107.1 fl (81.0-99.0); MONOCYTES # (AUTO) 0.9 K/uL (0.4-2.0); NEUTROPHILS # (AUTO) 9.9 K/ul (2.0-6.9); NEUTROPHILS % (AUTO) 79.1; PLATELET COUNT 147 10^3/uL (140-440); RED BLOOD COUNT 3.52 10^6/ul (4.20-5.40); WHITE BLOOD COUNT 12.55 K/ul (4.6-10.2)
[2016-08-26 06:26] LABS: PROTHROMBIN TIME 21.4 SEC (9.3-11.0)
[2016-08-26 06:41] LABS: ALBUMIN 1.9 g/dL (3.4-5.0); ALBUMIN/GLOBULIN RATIO 0.56; ANION GAP 10.5; CALCIUM 8.4 mg/dL (8.2-10.2); CREATININE 0.75 mg/dL (0.60-1.30); POTASSIUM 4.5 mmol/L (3.5-5.10); TOTAL PROTEIN 5.3 g/dL (6.4-8.2)
[2016-08-26 06:44] LABS: BILIRUBIN,TOTAL 24.97 mg/dL (0.00-1.20)
[2016-08-26] MEDS: SOD CHLORIDE 0.225% IV SCH ×2 (08:17→12:32)
[2016-08-26] MEDS: DEXTROSE 5% IV SCH ×2 (08:17→12:32)
[2016-08-26] MEDS: PYRIDOXINE HCL PO SCH (08:21)
[2016-08-26] MEDS: ALDACTONE PO SCH ×2 (08:21→21:09)
[2016-08-26] MEDS: FOLIC ACID PO SCH (08:21)
[2016-08-26] MEDS: ZOLOFT PO SCH (08:21)
[2016-08-26] MEDS: LACTULOSE PO SCH ×2 (08:21→21:13)
[2016-08-26] MEDS: NEURONTIN PO SCH (08:21)
[2016-08-26] MEDS: CORGARD PO SCH (08:22)
[2016-08-26] MEDS: THIAMINE IM SCH (08:22)
[2016-08-26] MEDS: VITAMIN B-12 IM SCH (08:24)
[2016-08-26] MEDS: SODIUM CHLORIDE 0.9%-KCL 20 MEQ 1,000 ML IV SCH (08:25)
[2016-08-26] MEDS: ZINC-220 PO SCH ×2 (08:25→21:10)
[2016-08-26] MEDS: LANTUS SUBCUT SCH ×2 (08:29→21:10)
[2016-08-26] MEDS: SODIUM CHLORIDE IV SCH (09:02)
[2016-08-26] MEDS: VITAMIN K IV SCH (09:02)
[2016-08-27 06:24] VITALS: BP 97/64; TEMP 97.8
[2016-08-27 06:34] LABS: BASOPHILS # (AUTO) 0.1 K/uL (0-0.2); BASOPHILS % (AUTO) 0.7 % (0.0-3.0); EOSINOPHILS # (AUTO) 0.3 K/ul (0.0-0.7); EOSINOPHILS % (AUTO) 2.2 % (0.0-7.0); HEMATOCRIT 39.8 % (37.0-47.0); HEMOGLOBIN 13.4 g/dl (12.0-16.0); IMMATURE GRANULOCYTE % (AUTO) 2.4 % (0.0-5.0); LYMPHOCYTES # (AUTO) 1.6 K/uL (0.60-3.4); LYMPHOCYTES % (AUTO) 11.3 (10.0-50.0); MEAN CORPUSCULAR HEMOGLOBIN 37.6 pg (27.0-31.0); MEAN CORPUSCULAR HGB CONC 33.7 (31.8-35.4); MEAN CORPUSCULAR VOLUME 111.8 fl (81.0-99.0); MONOCYTES # (AUTO) 1.2 K/uL (0.4-2.0); MONOCYTES % (AUTO) 8.4 (0-10); NEUTROPHILS # (AUTO) 10.4 K/ul (2.0-6.9); PLATELET COUNT 179 10^3/uL (140-440); RED BLOOD COUNT 3.56 10^6/ul (4.20-5.40)
[2016-08-27 06:45] LABS: PROTHROMBIN TIME 20.9 SEC (9.3-11.0)
[2016-08-27 06:59] LABS: ALBUMIN/GLOBULIN RATIO 0.53; ANION GAP 9.5; BUN/CREATININE RATIO 11.76; CALCIUM 8.6 mg/dL (8.2-10.2); CREATININE 0.85 mg/dL (0.60-1.30); POTASSIUM 4.5 mmol/L (3.5-5.10); TOTAL PROTEIN 5.8 g/dL (6.4-8.2)
[2016-08-27 08:22] LABS: BILIRUBIN,TOTAL 27.5 mg/dL (0.00-1.20)
--- NOTE | 2016-10-13 09:42 | DS ---
PATIENT IDENTIFICATION: 56 year old female presented to the emergency room because of pain in the right medial end of the clavicle secondary to a fall about 6 to 7 days ago. The patient does have some ecchymosis in the submental area, as well as on the right anterolateral chest. The work up in the emergency room revealed a fracture at the medial end of the clavicle, as well as significant jaundice, 14.4 total bilirubin, AST slightly elevated at 68, ALT at 30, serum ammonia slightly higher at 80, alkaline phosphatase normal at 58. Electrolytes were slightly below normal. Sodium 128 , potassium 3.3, chloride 94. The patient is known to have chronic alcoholic problems. She continued drinking. This patient was admitted to this facility since the emergency room physician was unable to transfer her to a facility surrounding [facility]. There was a promise that she would be admitted under Dr. Marie in [place] if there was an opening in the intensive care unit. HOSPITAL COURSE: Physical examination revealed and alert individual who was markedly jaundice, cooperative with movement of all extremities. There was an area of ecchymosis in the chin and tenderness in the right medial clavicular surface, but no crepitus. There was subcutaneous emphysema and ecchymosis right lateral chest and no subcutaneous emphysema or crepitus. LUNGS: Breath sounds are diminished and harsh, but no rales. HEART: Audible and regular with good tones. ABDOMEN: Somewhat protuberant, soft with no masses. Bowel sounds were active. LOWER EXTREMITIES: The right lower leg is bigger than the left side because of the recent fracture. Pedal pulses on the right were absent. The patient's home medications were Lasix 20 mg, Zoloft 50 mg, Lactulose 20 grams daily, Inderal 10 mg twice a day, Gabapentin 300 mg daily, Metformin 500 mg twice a day, Lantus Insulin 28 units twice a day, Aldactone 25 mg tablet twice a day and Nadolol 20 mg tablet daily. This patient was given Tylenol from the emergency room order, but this was discontinued and the Inderal was replaced with Nadolol 20 mg daily. She also was given Prednisolone 40 mg initially and Vitamin K 10 mg IV. The patient's INR in the range of about 2, slightly lower and slightly higher. She was given Vitamin K initially orally at 5 mg. Lactulose 15 gram every 12 hours instead of 20 once a day and the Lactulose was later increased to 20 every 12 hours. I was given the chance to talk to Dr. Stephen Marie and he did advise the Prednisolone. The patient was given Dextrose 5% in 1/4 saline, 1,000 cc to run at 42 cc per hour. The patient remained conscious and oriented and cooperative. The total bilirubin was increasing in spite of the above management. I had tried to get in touch with other facilities and no one would take her and I did talk to a hospitalist at [facility] and she told me that if they have a patient with that condition and numbers on the blood tests that she will be referred to [facility]. I had discussed the case with [facility] and asked whether there was any vacancy in the intensive care unit and they told me that there was no vacancy and no bed available. I had communicated this to the mother, as well as the patient. I had discussed with them about referral to other facilities that are quite a ways from [place], such as [facility] or [facility]. They would not go to those places because it is quite impossible logistically. I had finally talked to Dr. Fontana and Dr. Fontana was kind enough to accept her to be seen by him at his office on 08/27/2016 at 9:15 in the morning. This patient was then brought by family to his office on 2016 about 8 o'clock in the morning. The records were sent with them. FINAL DIAGNOSES: 1. ALCOHOLIC CIRRHOSIS, ADVANCED 2. SEVERE JAUNDICE, SECONDARY TO #1. 3. HISTORY OF CHRONIC ALCOHOL USE AND ABUSE, PERSISTENT UNTIL ADMISSION 4. FRACTURE OF RIGHT MEDIAL CLAVICLE 5. ELEVATED INR PROGNOSIS: Poor. MTDD
--- NOTE | 2016-10-13 09:52 | PN ---
DATE OF VISIT: 08/25/16 The patient is alert and responsive. She was markedly jaundiced. She had movement of all extremities. She is not confused. VITAL SIGNS: Temperature 97.6, pulse 67, blood pressure 111/76, respiratory rate 20, oxygen saturation 95 at room air. She did consume about 50% of her meals today. Her ProTime showed an INR of 2.08. Blood sugar 143, total bilirubin 22.49 slightly higher than yesterday. AST slightly higher, ALT still normal. Alkaline phosphatase 134, higher than yesterday. LUNGS: Still clear to auscultation. HEART: Audible and regular with good tones. ABDOMEN: Soft with no significant tenderness. CONDITION: Still was stable at this time. The jaundice, however, is intensifying based upon the number on the total bilirubin. I am still trying to get someone to see her and would again contact Dr. Fontana. BRANT
--- NOTE | 2016-10-13 10:01 | PN ---
DATE OF VISIT: 08/26/16 The patient is alert and the condition remains about the same as yesterday. She had remained afebrile. VITAL SIGNS: At 5:57 p.m. showed a temperature of 97.2, pulse 64, blood pressure 102/58, respiratory rate 16, oxygen saturation 98 at room air. I had been able to get in touch with Dr. Fontana and he was willing to see her tomorrow, 08/27/16, at his office. The appointment time is 9:15 in the morning. This patient will leave this hospital tomorrow and go to his office. Her WBC is slightly higher than yesterday and now 12,550. Total bilirubin again is higher than yesterday, now 24.97. AST 91, 92 yesterday. ALT remained within normal. Alkaline phosphatase had risen to 154. I had advised the mother and relatives that she will be going tomorrow to Dr. Fontana's office and the address is given. She had been there before according to the uncle. LUNGS: Remained clear. HEART: Audible with good tones. ABDOMEN: No remarkable tenderness. Bowel sounds are active. CONDITION: Stable. This patient's records will be sent with her tomorrow to Dr. Fontana. [facility]
== END 2016-08-27 07:45 | disposition home or self-care (01) | DRG 434 ==
LOC: ED 10:59 → SCU 19:52
PROVIDERS: ADMIT General Practice; ATTEND General Practice
DX: K70.30 Alcoholic cirrhosis of liver without ascites (principal); R79.1 Abnormal coagulation profile; F10.20 Alcohol dependence, uncomplicated; S42.001A Fracture of unspecified part of right clavicle, initial encounter for closed fracture; S49.91XA Unspecified injury of right shoulder and upper arm, initial encounter; E11.9 Type 2 diabetes mellitus without complications; I10 Essential (primary) hypertension; F17.210 Nicotine dependence, cigarettes, uncomplicated; M25.511 Pain in right shoulder; W18.09XA Striking against other object with subsequent fall, initial encounter; Z79.899 Other long term (current) drug therapy; Z79.84 Long term (current) use of oral hypoglycemic drugs
CPT/HCPCS: 36415; 80053; 80300; 81001; 82140; 82150; 82962; 83690; 85007; 85025; 85610; 85730; 87081; 93005; 93010; 97802; 99223; 99232; 99239; 99284

== ENCOUNTER 2016-09-23 12:03 | Outpatient (CLI) ==
[2013-01-31 11:23] VITALS: TEMP 97
[2016-09-23 21:01] VITALS: BMI 25.8
== END 2016-09-23 12:04 ==
LOC: AMBL 12:03
PROVIDERS: ATTEND Emergency Medicine
DX: R40.4 Transient alteration of awareness (principal); R53.83 Other fatigue; K72.90 Hepatic failure, unspecified without coma; R17 Unspecified jaundice; E11.9 Type 2 diabetes mellitus without complications; R03.1 Nonspecific low blood-pressure reading

== ENCOUNTER 2016-09-23 12:10 | Inpatient (IN) ==
[2016-09-23] MEDS ORDERED: SODIUM CHLORIDE 1,000 ML IV STA ×2 (12:24→14:38)
[2016-09-23] MEDS ORDERED: LACTULOSE PO STA (12:27)
--- NOTE | 2016-09-23 12:28 | ED.PDOC ---
General ED Provider: Dr. JAYLON BAUTISTA JR Chief Complaint: Weakness Stated Complaint: pt brought in by ems from home. pt unable to give any information except her name. pts mother who also is confused had called dr ashley and was told to come to er. pt is very jaundiced to whole body. unable to answer questions or follow commands. [ End ]96.2 66 20 98% 95/53. patient' s mother here"I have alzheimes, cannot help with meds has not taken meds for three days no alcohol for two months" mother's brother here- ira is trumpet player for her mother, but often stays in bed and does nothing, has been getting up irregulary past two weeks. poorly communicative awake not attentive , allows exam states "all right" to how are you doing?shakes head to feeling well? attempts to place blanket on shoulder, appears uncomfortable denies specific distress Time Seen by Physician: 12:24 Mode of Arrival: Ambulance Information Source: EMT Exam Limitations: Clinical condition Primary Care Provider: VIPUL [facility] Nursing and Triage Documentation Reviewed and Agree: Yes Review of Systems - Review Of Systems Constitutional: Reports: Malaise, Other Eyes: Reports: No symptoms Ears, Nose, Mouth, Throat: Reports: No symptoms Respiratory: Reports: No symptoms Cardiac: Reports: No symptoms GI: Reports: Other : Reports: Other Musculoskeletal: Reports: Other Skin: Reports: Other Neurological: Reports: Cognitive dysfunction, Weakness Endocrine: Reports: Other Hematologic/Lymphatic: Reports: Other All Other Systems: Other Past Medical History - Past Medical History Previously Healthy: No Endocrine: Reports: DM 1 Cardiovascular: Reports: Hypertension, CHF Respiratory: Reports: COPD Hematological: Reports: None Gastrointestinal: Reports: Liver (alcoholic cirrosis-called [id number]-not correct given [phone](machine only)gi;) Genitourinary: Reports: None Neuro/Psych: Reports: Anxiety, Depression Musculoskeletal: Reports: None Cancer: Reports: None Last Menstrual Period: unknown Other Pertinent Past Medical History: hip dm liver etoh - Surgical History General Surgical History: Reports: Unknown - Family History Family History: Reports: Unknown - Social History Smoking Status: Current every day smoker, Light tobacco smoker Hx Substance Use: No Alcohol Screening: Heavy Physical Exam - Physical Exam Appearance: Ill-appearing Ill-appearing: Moderate Eyes: FIDELIA Neck: Supple Respiratory: Airway patent, Breath sounds clear Cardiovascular: RRR, Pulses normal, Murmur GI/: Soft, No masses, Tender (nonfocal mild fullness present) Musculoskeletal: Limited ROM, Limited strength Skin: Warm, Dry (jaundiced) Neurological: Alert, Unresponsive (answers few questions with vague answers) Interpretation - Radiology Interpretation Radiology Interpretation By: Radiologist Radiology Results: No acute changes Exam Interpreted: CXR - EKG Interpretation Time of EKG #1: 12:37 Rate: Normal Rhythm: Sinus Ectopy: None [place]: NL ST Segment: Other (prolonged QT) Re-Evaluation - Re-Evaluation Time of Re-Evaluation: 13:51 Status: Unchanged Vital Signs Stable: Yes Appearance: Other Lungs: Clear Skin: Warm and Dry Neuro: Other CV: RRR (systolic murmur radiates to carotids) - Re-Evaluation Time of Re-Evaluation: 15:30 Status: Unchanged (disc with family motherof paitent mothers brother (unclesSO) , believe patietn is not to benefit from transfer request comfort care and dnr but continue routine care- dr chaney informed -suggests [facility] and hospice) Physician Notification - Case Discussed Physician Notified: gareth- not appropriate here-consider st Time of Notification: 13:45 ([facility]) Physician Notified: krystyna at [facility]- no beds consider [place] Time of Notification: 14:55 Endorsed To/Discussed With: dr chaney- admits Time of Discussion: 18:45 (note diabetes dr rojas requests d5 half normal saline) Critical Care Note - Critical Care Note Total Time (mins): 20 Course - Course Hematology/Chemistry: 09/23/16 12:45 09/23/16 15:04 Orders, Labs, Meds: Lab Review 09/23/16 09/23/16 12:45 15:04 WBC 12.06 H RBC 3.26 L Hgb 11.8 L Hct 33.7 L MCV 103.4 H MCH 36.2 H MCHC 35.0 RDW Coeff of Lul 15.1 H Plt Count 109 L Immature Gran % (Auto) 1.2 Neut % (Auto) 83.6 Lymph % (Auto) 7.0 L Van Zandt % (Auto) 7.7 Eos % (Auto) 0.3 Baso % (Auto) 0.2 Immature Gran # (Auto) 0.1 Neut # 10.1 H Lymph # 0.8 [place]t # 0.9 Eos # 0.0 Baso # 0.0 Sodium 141 142 Potassium 4.5 5.1 Chloride 114 H 115 H Carbon Dioxide 15 L 13 L Anion Gap 16.5 19.1 BUN 92 H* 93 H* Creatinine 4.29 H* 3.94 H* Estimated GFR (MDRD) 11.00 12.00 BUN/Creatinine Ratio 21.44 23.60 Glucose 163 H 156 H Calcium 9.1 8.8 Total Bilirubin 27.48 H* AST 89 H ALT 42 Alkaline Phosphatase 206 H Ammonia 115 H Total Creatine Kinase 43 Troponin I 0.0140 B-Natriuretic Peptide 418 H Total Protein 5.7 L Albumin 1.4 L Globulin 4.3 Albumin/Globulin Ratio 0.33 Amylase 36 Lipase 22 Procalcitonin 1.34 Plasma/Serum Alcohol < 10.0 Orders Category Date Time Status ADMIT PATIENT INPATIENT .TO SCU (MONITORED BED) ADMISSION 09/23/16 19:[address] PATIENT OBSERVATION .TO MEDSURG (NON-MONITORED ADMISSION 09/23/16 19: 15 Inactive BED) EKG-(ED ONLY) Stat CARDIO 09/23/16 12:24 Completed ACTIVITY .Complete BR CARE 09/23/16 19:15 Active BLOOD GLUCOSE MONITORING 0630,1100,1700,2100 CARE 09/23/16 19:19 Active CASE MANAGEMENT CONSULT ONCE CARE 09/23/16 19:16 Active CATHETER INSERTION AND CARE Q8HR CARE 09/23/16 19:15 Active GIVE HS SNACK 2100 CARE 09/23/16 19:17 Active INTAKE & OUTPUT Q8HR CARE 09/23/16 19:15 Active INTAKE & OUTPUT Q8HR CARE 09/23/16 19:26 Inactive TELEMETRY MONITORING TELE CARE 09/23/16 19:27 Active VITAL SIGNS Q4HR CARE 09/23/16 19:15 Active CLEAR LIQUID DIET DIETARY 09/23/16 Breakfast Ordered HS SNACK DIETARY 09/23/16 Dinner Ordered ED IV/MEDIPORT/POWERPORT .ONCE EMERGENCY 09/23/16 12:24 Active ALCOHOL LEVEL [BLOOD ALCOHOL] Stat LAB 09/23/16 12:45 Completed AMMONIA Stat LAB 09/23/16 12:45 Completed AMYLASE Stat LAB 09/23/16 12:45 Completed B-TYPE NATRIURETIC PEPTIDE Stat LAB 09/23/16 12:45 Completed BLOOD CULTURE Stat LAB 09/23/16 12:45 Received BMP [BASIC METABOLIC PANEL] Stat LAB 09/23/16 15:04 Completed CBC W/ AUTO DIFF DAILY@0600 LAB 09/24/16 06:00 Ordered CBC W/ AUTO DIFF DAILY@0600 LAB 09/25/16 06:00 Ordered CBC W/ AUTO DIFF DAILY@0600 LAB 09/26/16 06:00 Ordered CBC W/ AUTO DIFF DAILY@0600 LAB 09/27/16 06:00 Ordered CBC W/ AUTO DIFF DAILY@0600 LAB 09/28/16 06:00 Ordered CBC W/ AUTO DIFF DAILY@0600 LAB 09/29/16 06:00 Ordered CBC W/ AUTO DIFF DAILY@0600 LAB 09/30/16 06:00 Ordered CBC W/ AUTO DIFF DAILY@0600 LAB 10/01/16 06:00 Ordered CBC W/ AUTO DIFF DAILY@0600 LAB 10/02/16 06:00 Ordered CBC W/ AUTO DIFF DAILY@0600 LAB 10/03/16 06:00 Ordered CBC W/ AUTO DIFF DAILY@0600 LAB 10/04/16 06:00 Ordered CBC W/ AUTO DIFF DAILY@0600 LAB 10/05/16 06:00 Ordered CBC W/ AUTO DIFF DAILY@0600 LAB 10/06/16 06:00 Ordered CBC W/ AUTO DIFF DAILY@0600 LAB 10/07/16 06:00 Ordered CBC W/ AUTO DIFF DAILY@0600 LAB 10/08/16 06:00 Ordered CBC W/ AUTO DIFF DAILY@0600 LAB 10/09/16 06:00 Ordered CBC W/ AUTO DIFF DAILY@0600 LAB 10/10/16 06:00 Ordered CBC W/ AUTO DIFF DAILY@0600 LAB 10/11/16 06:00 Ordered CBC W/ AUTO DIFF DAILY@0600 LAB 10/12/16 06:00 Ordered CBC W/ AUTO DIFF DAILY@0600 LAB 10/13/16 06:00 Ordered CBC W/ AUTO DIFF Stat LAB 09/23/16 12:45 Completed COMPREHENSIVE METABOLIC PANEL DAILY@0600 LAB 09/24/16 06:00 Ordered COMPREHENSIVE METABOLIC PANEL DAILY@0600 LAB 09/25/16 06:00 Ordered COMPREHENSIVE METABOLIC PANEL DAILY@0600 LAB 09/26/16 06:00 Ordered COMPREHENSIVE METABOLIC PANEL DAILY@0600 LAB 09/27/16 06:00 Ordered COMPREHENSIVE METABOLIC PANEL DAILY@0600 LAB 09/28/16 06:00 Ordered COMPREHENSIVE METABOLIC PANEL DAILY@0600 LAB 09/29/16 06:00 Ordered COMPREHENSIVE METABOLIC PANEL DAILY@0600 LAB 09/30/16 06:00 Ordered COMPREHENSIVE METABOLIC PANEL DAILY@0600 LAB 10/01/16 06:00 Ordered COMPREHENSIVE METABOLIC PANEL DAILY@0600 LAB 10/02/16 06:00 Ordered COMPREHENSIVE METABOLIC PANEL DAILY@0600 LAB 10/03/16 06:00 Ordered COMPREHENSIVE METABOLIC PANEL DAILY@0600 LAB 10/04/16 06:00 Ordered COMPREHENSIVE METABOLIC PANEL DAILY@0600 LAB 10/05/16 06:00 Ordered COMPREHENSIVE METABOLIC PANEL DAILY@0600 LAB 10/06/16 06:00 Ordered COMPREHENSIVE METABOLIC PANEL DAILY@0600 LAB 10/07/16 06:00 Ordered COMPREHENSIVE METABOLIC PANEL DAILY@0600 LAB 10/08/16 06:00 Ordered COMPREHENSIVE METABOLIC PANEL DAILY@0600 LAB 10/09/16 06:00 Ordered COMPREHENSIVE METABOLIC PANEL DAILY@0600 LAB 10/10/16 06:00 Ordered COMPREHENSIVE METABOLIC PANEL DAILY@0600 LAB 10/11/16 06:00 Ordered COMPREHENSIVE METABOLIC PANEL DAILY@0600 LAB 10/12/16 06:00 Ordered COMPREHENSIVE METABOLIC PANEL DAILY@0600 LAB 10/13/16 06:00 Ordered COMPREHENSIVE METABOLIC PANEL Stat LAB 09/23/16 12:45 Completed CREATINE KINASE Stat LAB 09/23/16 12:45 Completed LIPASE Stat LAB 09/23/16 12:45 Completed PROCALCITONIN Stat LAB 09/23/16 12:45 Completed TROPONIN I Stat LAB 09/23/16 12:45 Completed URINALYSIS C & S IF INDICATED Stat LAB 09/23/16 12:24 Uncollected 0.9 % Sodium Chloride [Saline Flush] MEDS 09/23/16 12:24 Active 1 syr IVF PRN PRN Furosemide [Lasix Tab] MEDS 09/24/16 06:30 Ordered 20 mg PO QDAC Gabapentin [Neurontin] MEDS 09/24/16 09:00 Ordered 300 mg PO DAILY Insulin Regular, Human [Humulin R] MEDS 09/23/16 19:28 Ordered See Protocol SUBCUT PRN PRN Lactulose [Kristalose] MEDS 09/23/16 21:00 Ordered 30 ml PO TID Sodium Chloride 0.9% [Sodium Chloride] 1,000 ml MEDS 09/23/16 12:24 Active IV 100 mls/hr Sodium Chloride 0.9% [Sodium Chloride] 1,000 ml MEDS 09/23/16 14:38 Active IV 100 mls/hr Sodium Chloride 0.9% [Sodium Chloride] 1,000 ml MEDS 09/23/16 19:30 Discontinued IV 75 mls/hr Spironolactone [Aldactone] MEDS 09/23/16 21:00 Ordered 25 mg PO BID Tramadol HCl [Ultram] MEDS 09/23/16 19:21 Ordered 50 mg PO Q6H PRN RESUSCITATION STATUS Routine OTHERS 09/23/16 19:15 Ordered CHEST, 1V AP ONLY Stat RADS 09/23/16 12:24 Completed Medications Generic Name Dose Route Start Last Admin Trade Name Freq PRN Reason Stop Dose Admin Furosemide 20 mg 09/24/16 06:30 Lasix Tab PO QDAC REJI Gabapentin 300 mg 09/24/16 09:00 Neurontin PO DAILY REJI Sodium Chloride 1,000 mls @ 100 mls/hr 09/23/16 12:24 09/23/16 12:32 Sodium Chloride IV 09/23/16 22:23 100 mls/hr .Q10H STA Administration Sodium Chloride 1,000 mls @ 100 mls/hr 09/23/16 14:38 09/23/16 14:40 Sodium Chloride IV 09/24/16 00:37 100 mls/hr .Q10H STA Administration Dextrose/Sodium Chloride 1,000 mls @ 75 mls/hr 09/23/16 19:33 Dextrose 5%-1/2ns Iv Solution IV 09/24/16 08:52 .[id number] STA Insulin Human Regular 0 unit 09/23/16 19:28 Humulin R SUBCUT PRN PRN Hyperglycemica Protocol Morphine Sulfate 2 mg 09/23/16 19:43 Morphine 2 Mg/Ml Syringe IVP Q4H PRN pain Non-Formulary Medication 30 ml 09/23/16 21:00 Lactulose [Kristalose] PO TID REJI Sodium Chloride 1 syr 09/23/16 12:24 09/23/16 12:32 Saline Flush IVF 1 syr PRN PRN Administration To flush IV Spironolactone 25 mg 09/23/16 21:00 Aldactone PO BID REJI Tramadol HCl 50 mg 09/23/16 19:21 Ultram PO Q6H PRN pain Discontinued Medications Generic Name Dose Route Start Last Admin Trade Name Freq PRN Reason Stop Dose Admin Sodium Chloride 1,000 mls @ 75 mls/hr 09/23/16 19:30 Sodium Chloride IV .[id number] REJI Vital Signs: Temp Pulse Resp BP Pulse Ox 09/23/16 12:11 96.2 F L 66 20 95/53 L 98 Departure - Departure Time of Disposition: 19:30 Disposition: ADMITTED INPATIENT Discharge Problem: Dehydration, severe Hepatic failure Qualifiers: Liver failure chronicity: chronic Hepatic coma status: with hepatic coma Qualifier Code: (K72.11) Chronic hepatic failure with coma Condition: Poor Pt referred to PMD for follow-up: No (sees clinic admit dr chaney hospice consult) Allergies/Adverse Reactions: Allergies No Known Allergies Allergy (Verified 09/23/16 12:20) Home Medications: Ambulatory Orders RX: Furosemide [Lasix Tab] 20 mg PO QDAC 01/24/13 RX: Lactulose [Kristalose] 20 gm PO TID #90 packet 08/19/16 Tramadol HCl [Ultram] 50 mg PO Q6H PRN #14 tablet 08/19/16 RX: Nadolol 20 mg PO DAILY 08/21/16
--- NOTE | 2016-09-23 12:57 | DI ---
EXAM: Single AP view of the chest HISTORY: Chest pain. COMPARISON: Chest x-ray 08/19/2016 FINDINGS: Cardiomediastinal silhouette is unchanged. There is no pneumothorax. Minimal blunting th e costophrenic angles likely poorly visualized due to overlying soft tissues. There is no acute con solidation or mass. There is no pulmonary vascular congestion or edema present. The osseous struct ures appear unchanged from prior exam with degenerative disease of the shoulders and spine. IMPRESSION: No acute cardiopulmonary process or consolidation.
[2016-09-23 13:00] LABS: BASOPHILS % (AUTO) 0.2 % (0.0-3.0); EOSINOPHILS % (AUTO) 0.3 % (0.0-7.0); HEMATOCRIT 33.7 % (37.0-47.0); HEMOGLOBIN 11.8 g/dl (12.0-16.0); IMMATURE GRANULOCYTE % (AUTO) 1.2 % (0.0-5.0); LYMPHOCYTES # (AUTO) 0.8 K/uL (0.60-3.4); MEAN CORPUSCULAR HEMOGLOBIN 36.2 pg (27.0-31.0); MEAN CORPUSCULAR VOLUME 103.4 fl (81.0-99.0); MONOCYTES # (AUTO) 0.9 K/uL (0.4-2.0); MONOCYTES % (AUTO) 7.7 (0-10); NEUTROPHILS # (AUTO) 10.1 K/ul (2.0-6.9); NEUTROPHILS % (AUTO) 83.6; PLATELET COUNT 109 10^3/uL (140-440); RED BLOOD COUNT 3.26 10^6/ul (4.20-5.40); WHITE BLOOD COUNT 12.06 K/ul (4.6-10.2)
[2016-09-23 13:31] LABS: ALBUMIN 1.4 g/dL (3.4-5.0); ALBUMIN/GLOBULIN RATIO 0.33; ANION GAP 16.5; BUN/CREATININE RATIO 21.44; CALCIUM 9.1 mg/dL (8.2-10.2); POTASSIUM 4.5 mmol/L (3.5-5.10); TOTAL PROTEIN 5.7 g/dL (6.4-8.2); TROPONIN I 0.014 ng/ml (0.0000-0.4000)
[2016-09-23 13:33] LABS: CREATININE 4.29 mg/dL (0.60-1.30)
[2016-09-23 13:54] LABS: BILIRUBIN,TOTAL 27.48 mg/dL (0.00-1.20)
[2016-09-23 15:30] LABS: ANION GAP 19.1; BUN/CREATININE RATIO 23.6; CALCIUM 8.8 mg/dL (8.2-10.2); POTASSIUM 5.1 mmol/L (3.5-5.10)
[2016-09-23 15:32] LABS: CREATININE 3.94 mg/dL (0.60-1.30)
[2016-09-23] MEDS ORDERED: ULTRAM PO PRN (19:21)
[2016-09-23] MEDS ORDERED: HUMULIN R SUBCUT PRN (19:28)
[2016-09-23] MEDS ORDERED: SODIUM CHLORIDE 1,000 ML IV SCH (19:30)
[2016-09-23] MEDS ORDERED: DEXTROSE 5%-1/2NS IV SOLUTION 1,000 ML IV STA (19:33)
[2016-09-23] MEDS ORDERED: MORPHINE 2 MG/ML SYRINGE IVP PRN (19:43)
[2016-09-23 20:31] LABS: ADD URINE MICROSCOPIC YES; BILIRUBIN,URINE 3+ (NEGATIVE); KETONES,URINE Trace (NEGATIVE); LEUKOCYTE ESTERASE ,URINE 1+ (NEGATIVE); NITRITE,URINE Negative (NEGATIVE); PH,URINE 5.5 (5-9); PROTEIN,URINE 1+ (NEGATIVE); URINE, BLOOD 2+ (NEGATIVE)
[2016-09-23 20:32] LABS: PROTHROMBIN TIME 21.3 SEC (9.3-11.0)
[2016-09-23 20:43] LABS: BACTERIA,URINE 4+ (NOT PRESENT)
[2016-09-23] MEDS ORDERED: LACTULOSE PO SCH (21:00)
[2016-09-23 21:01] VITALS: BMI 25.8
[2016-09-23] MEDS: ALDACTONE PO SCH (21:51)
[2016-09-24 06:23] LABS: BASOPHILS % (AUTO) 0.3 % (0.0-3.0); EOSINOPHILS # (AUTO) 0.1 K/ul (0.0-0.7); EOSINOPHILS % (AUTO) 1.3 % (0.0-7.0); HEMATOCRIT 30.9 % (37.0-47.0); HEMOGLOBIN 10.7 g/dl (12.0-16.0); IMMATURE GRANULOCYTE % (AUTO) 1.2 % (0.0-5.0); LYMPHOCYTES # (AUTO) 1.2 K/uL (0.60-3.4); LYMPHOCYTES % (AUTO) 11.4 (10.0-50.0); MEAN CORPUSCULAR HEMOGLOBIN 36.3 pg (27.0-31.0); MEAN CORPUSCULAR HGB CONC 34.6 (31.8-35.4); MEAN CORPUSCULAR VOLUME 104.7 fl (81.0-99.0); NEUTROPHILS # (AUTO) 8.3 K/ul (2.0-6.9); NEUTROPHILS % (AUTO) 76.8; PLATELET COUNT 97 10^3/uL (140-440); RED BLOOD COUNT 2.95 10^6/ul (4.20-5.40); WHITE BLOOD COUNT 10.83 K/ul (4.6-10.2)
[2016-09-24] MEDS ORDERED: LASIX TAB PO SCH (06:30)
[2016-09-24 06:39] LABS: PARTIAL THROMBOPLASTIN TIME 51.7 SEC (23.9-40.0)
[2016-09-24 06:55] LABS: ALBUMIN 1.3 g/dL (3.4-5.0); ALBUMIN/GLOBULIN RATIO 0.32; ANION GAP 16.4; BUN/CREATININE RATIO 21.89; CALCIUM 8.6 mg/dL (8.2-10.2); POTASSIUM 4.4 mmol/L (3.5-5.10); TOTAL PROTEIN 5.4 g/dL (6.4-8.2)
[2016-09-24 07:21] LABS: CREATININE 4.43 mg/dL (0.60-1.30)
[2016-09-24 07:22] LABS: BILIRUBIN,TOTAL 27.76 mg/dL (0.00-1.20)
[2016-09-24] MEDS: ALDACTONE PO SCH (08:27)
[2016-09-24] MEDS: LACTULOSE PO SCH ×3 (08:27→16:00)
[2016-09-24] MEDS ORDERED: NEURONTIN PO SCH (09:00)
[2016-09-24 09:57] VITALS: TEMP 96.8
[2016-09-24] MEDS ORDERED: DEXTROSE 5%-1/2NS IV SOLUTION 1,000 ML IV SCH (12:30)
[2016-09-24 13:41] VITALS: BP 96/61
--- NOTE | 2016-09-27 11:25 | SSS ---
CHIEF COMPLAINT: Lethargy, weakness, not eating, not taking medication. HISTORY OF PRESENT ILLNESS: 56 year old female who had been known to have alcoholic cirrhosis was brought into the emergency room since she had not been eating or taking medications for the last three to four days. She has difficulty getting out of bed. This patient was seen by Dr. Fontana, a [place] rn intern who had seen her previously because of the same problem. She was seen 08/27/2016. The emergency room physician, Dr. Jarod Ag , had tried looking for a place for her and he told me that they might have a bed for her in [place], but the family does not want to bring her to [place]. She had been told also by Dr. Fontana, during the course of our conversation just before her admission to the hospital, that there was nothing that can be done for her and she does not qualify for a liver transplant. She has to be sober at least for six months for them to consider a liver transplantation. The mother is not able to help her at home since she has some senile dementia and cannot remember the medications and when to be given. She now has accepted the idea that there is no place for her to go to have anything done medically. Liver transplantation was remote and she would not go to [place]. They have accepted the idea of Hospice, but there was no fdc in [place] that would accept her away and so this patient was admitted to [facility] for temporary care and possibly transfer her to a facility and continue Hospice Care. PAST MEDICAL HISTORY: The patient was admitted to [facility] on 08/2015 because of cognitive dysfunction with pneumonia. She is also known to have alcoholic cirrhosis and the patient had improved after she was in the fdc for a few months. She had a fracture of the right leg after a fall. She walks to the store to get alcohol. FAMILY HISTORY: Mother with hypertension and myocardial infarction. Father had lung carcinoma. SOCIAL HISTORY: The patient is single and resides with her mother. She is disabled, every day smoker of less than a pack a day. The patient had not had alcohol now for about a month or so. MEDICATIONS: At home prior to this admission. Lasix 20 mg daily Zoloft 50 mg daily Lactulose 20 grams in 30 cc daily Propranolol 10 mg twice a day Gabapentin 300 mg daily Metformin 500 mg twice a day Lantus 28 Units subcutaneously twice a day Aldactone 25 mg twice a day Tramadol 50 mg tablet every 6 hours prn Lactulose 20 gram packet Nadolol 20 mg daily Lactulose 20 gram 30 gram packet three times a day These are all of the medications that are duplicated namely the Lactulose is listed three times. The Inderal, as well as the Nadolol is a duplication. ALLERGIES: No known drug allergies. REVIEW OF SYSTEMS: CONSTITUTIONAL: The patient is arousable. No fever and no chills, but with some fatigue and hardly gets out of bed and could not stand on her own. AREA REPRESENTATIVE: The patient is drowsy and restless. This may be related to the markedly elevated total bilirubin. VISUAL: The patient is not able to answer questions. AUDITORY: Again, the patient is not able to provide answers. RESPIRATORY: The patient is not answering. CARDIOVASCULAR: No answer. INTEGUMENT: The patient has a rollins yellow color. No rash. The rest of the systems are not answered by the patient. PSYCHIATRIC: The patient seemed to be restless and somewhat confused. PHYSICAL EXAMINATION: GENERAL: 56 year old female admitted to the hospital via the emergency room 09/23/16 because of confusion, restlessness, weakness and markedly jaundiced. VITAL SIGNS: Temperature 96.2, pulse 66, blood pressure 95/53, respiratory rate 20, oxygen saturation 98. She was known to be 6' and now weighs 180 pounds. Previous entry was 190 pounds and 6.4 ounces. HEAD: Unremarkable. FACE: Color is rollins yellow. No significant tenderness to palpation under pressure in the frontal or maxillary sinus areas. EYES: The pupils are equal and reactive to light about 3 mm in size. Conjunctivae is markedly icteric. MOUTH: Unremarkable. NECK: No masses, no tenderness and no bruit. CHEST: Essentially symmetrical and equal with no remarkable tenderness and no ecchymosis. LUNGS: Breath sounds are diminished in both sides and the patient is not able to take a deep breath on command. No obvious rales relying on patient's breathing, shallow. HEART: Audible and regular with good tones. No murmurs. ABDOMEN: Protuberant, soft with no remarkable tenderness. No guarding. Bowel sounds are active. No masses palpable. Liver not palpable. EXTERNAL GENITALIA: Not examined. PELVIC: Not performed. RECTAL: Not performed. LOWER EXTREMITIES: The right leg is slightly bigger than the left. The patient had previous fracture in the right leg. Right pedal pulses absent. UPPER EXTREMITIES: Symmetrical and equal. ASSESSMENT: 1. HEPATIC FAILURE, SECONDARY TO ADVANCED CIRRHOSIS 2. RENAL FAILURE END STAGE 3. TYPE II DIABETES MELLITUS WITH INSULIN 4. ELEVATED BMI 5. HISTORY OF HIP FRACTURE, CORRECTED 6. HISTORY OF RIGHT LEG FRACTURE HOSPITAL COURSE: The patient was given saline, a bolus, in the emergency room and was then continued on Dextrose 5% in water. Labs done in the emergency room before admission showed a CBC with WBC 12,060, hemoglobin 8.8, hematocrit 33.7, MCV 103.4, MCH 36.2, RDW 15.1, platelet count 109,000. PT 21.3, INR 2.07 , APTT 52.4. Range of normal 23.9 to 40. A repeat CBC on 09/24/2016 decreasing WBC to 10,830, hemoglobin now at 10.7, hematocrit 30.9, MCV and MCH still elevated. Neutrophils higher yesterday at 10.1 and is now 8.3. The INR is about the same from yesterday. BUN was 93 and in now 97, in spite of the IV. The creatinine is 3.94 and 4.43. GFR 12 yesterday and now 10. Glucose 191 and 156 yesterday. Total bilirubin 27.48 and now 27.76. AST 89 yesterday and today 84. ALT normal. Alkaline phosphatase 206 and 190 today. Ammonia 113 and 126 today. BNP is slightly elevated 418. Serum amylase and lipase normal. Procalcitonin normal at 1.34. Total protein and albumin below normal. Albumin 1.4 and 1.3. Urine with 10-20 RBC and microscopic WBC is 5-10. 2+ blood, 3+ bilirubin, 1+ protein. Serum alcohol less than 10. This patient, at the time of discharge, was awake, but somewhat restless. She wants to get out of bed and may be she wants to go to the bathroom or commode. She does have a Vázquez catheter. The skin is markedly yellow, jaundice, rollins yellow. HEART: Normal sinus rhythm. ABDOMEN: No masses, no tenderness. Bowel sounds are active. LUNGS: Again, not able to hear very well since she does not follow verbal commands any more. The patient is discharged today to the fdc and will be followed by [facility] and will provide for the comfort medications or measures. She will only be continued with Lactulose 20 grams twice a day and Inderal 10 mg twice a day. I had changed Inderal previously to [place]. This patient had not been taking medications for the last several days at home. The patient is a DNR. PROGNOSIS: Grim. FINAL DIAGNOSIS: 1. ALCOHOLIC CIRRHOSIS, END STAGE 2. RENAL FAILURE 3. ANEMIA 4. TYPE II DIABETES MELLITUS 5. 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 HISTORY OF HIP FRACTURE, CORRECTED 7. HISTORY OF RIGHT LEG FRACTURE AND ANKLE, CORRECTED 8. RENAL FAILURE END STAGE MTDD
== END 2016-09-24 16:10 | disposition short-term general hospital (02) | DRG 432 ==
LOC: ED 12:10 → SCU 19:31
PROVIDERS: ADMIT General Practice; ATTEND General Practice
DX: K70.30 Alcoholic cirrhosis of liver without ascites (principal); K72.11 Chronic hepatic failure with coma; N18.6 End stage renal disease; G93.49 Other encephalopathy; E80.6 Other disorders of bilirubin metabolism; D64.9 Anemia, unspecified; E11.9 Type 2 diabetes mellitus without complications; R63.8 Other symptoms and signs concerning food and fluid intake; R63.0 Anorexia; T50.906A Underdosing of unspecified drugs, medicaments and biological substances, initial encounter; F17.210 Nicotine dependence, cigarettes, uncomplicated; R41.89 Other symptoms and signs involving cognitive functions and awareness; E86.0 Dehydration; R53.1 Weakness; Z79.899 Other long term (current) drug therapy; Z79.4 Long term (current) use of insulin; Z87.81 Personal history of (healed) traumatic fracture
CPT/HCPCS: 36415; 80048; 80053; 80307; 81001; 82140; 82150; 82550; 82962; 83690; 83880; 84145; 84484; 85025; 85610; 85730; 87040; 87081; 87086; 87186; 93005; 93010; 96360; 96361; 99222; 99239; 99284

== ENCOUNTER 2016-09-24 16:12 | Outpatient (CLI) ==
[2013-01-31 11:23] VITALS: TEMP 97
[2016-09-23 21:01] VITALS: BMI 25.8
== END 2016-09-24 16:13 ==
LOC: AMBL 16:12
PROVIDERS: ATTEND Emergency Medicine
DX: R53.1 Weakness (principal); R17 Unspecified jaundice